=== PATIENT | female | born 1955 | race Caucasian/White ===

== ENCOUNTER → 2016-09-21 | Outpatient (CLI) | payer BC ==
[~2016-09-21] MED LIST: ASPI-232 PO; SYMIN160 INH; TRIA1SPR2 NAE
--- NOTE | 2016-09-21 08:40 | DIAGNOSTIC IMAGING REPORT ---
ABDOMEN COMPLETE (US) CLINICAL HISTORY: K58.9 Irritable bowel [id number] Abdominal bloating COMPARISON STUDY: 11/23/2015 FINDINGS: The pancreas appear normal as visualized. The gallbladder appeared normal. There is no ductal dilatation. The common buttock measures 4 mm. The spleen measures 9.8 cm in length. The right kidney measured 10.8 cm in length. The left kidney measures 10.7 cm in length. No focal renal masses were visualized. There is no hydronephrosis. There is no abdominal aortic dilatation. The IVC was unremarkable in appearance. The liver was of slightly increased echogenicity, nonspecific finding likely secondary to hepatic steatosis. IMPRESSION: Suspected hepatic steatosis. Otherwise unremarkable abdominal ultrasound. Electronically signed by: Antony Rodas M.D. 09/21/2016 8:38 AM Dictated Date/Time: 09/21/2016 8:36 AM
[2016-09-21 09:30] LABS: BASO % 0.2 %; BASO ABS # 0.02 K/uL (0-0.2); COMPLETE YES; EOS % 2.4 %; IG% 0.4 %; LYMPH % 23.1 %; MEAN CELL VOLUME 91.1 fL (80-100); MEAN CORPUSCULAR HEMOGLOBIN 31.3 pg (25-34); MEAN CORPUSCULAR HGB CONC 34.3 g/dl (32-36); MEAN PLATELET VOLUME 10.2 fL (7.4-10.4); MONO % 7.8 %; NEUT % 66.1 %; PLATELET COUNT 269 K/uL (130-400); RED BLOOD COUNT 4.83 M/uL (4.2-5.4); WHITE BLOOD COUNT 10.38 K/uL (4.8-10.8)
[2016-09-21 09:44] LABS: ALT/SGPT 40 U/L (12-78); BLOOD UREA NITROGEN 15 mg/dl (7-18); BUN/CREATININE RATIO 13.3 (10-20); CALCIUM 9.3 mg/dl (8.5-10.1); CARBON DIOXIDE 26 mmol/L (21-32); CHLORIDE 106 mmol/L (98-107); CHOLESTEROL 219 mg/dl (0-200); GLUCOSE 96 mg/dl (70-99); POTASSIUM 4.4 mmol/L (3.5-5.1); SODIUM 141 mmol/L (136-145); TRIGLYCERIDES 199 mg/dl (0-150); VERY LOW DENSITY LIPOPROT CALC 40 mg/dl
[2016-09-21 09:53] LABS: ALB/GLOB RATIO 1.2 (0.9-2); ALKALINE PHOSPHATASE 60 U/L (45-117); AST/SGOT 18 U/L (15-37); CHOLESTEROL/HDL RATIO 6.6; HDL CHOLESTEROL 33 mg/dl; LDL CHOLESTEROL CALCULATED 146 mg/dl
== END | disposition home or self-care (01) ==
LOC: C.ULTR 07:41
PROVIDERS: ATTEND Internal Medicine
DX: R14.0 Abdominal distension (gaseous) (principal); R10.13 Epigastric pain; K58.9 Irritable bowel syndrome, unspecified; Z13.220 Encounter for screening for lipoid disorders

== ENCOUNTER → 2017-01-05 | Outpatient (CLI) | payer BC, OTHER | END | disposition home or self-care (01) | LOC: C.PAPS 11:27 | PROVIDERS: ATTEND Obstetrics & Gynecology | DX: Z01.419 Encounter for gynecological examination (general) (routine) without abnormal findings (principal) ==

== ENCOUNTER → 2017-11-24 | Outpatient (CLI) | payer BC | END | disposition home or self-care (01) | LOC: C.LAB1850 10:29 | PROVIDERS: ATTEND Internal Medicine | DX: R14.0 Abdominal distension (gaseous) (principal) ==

== ENCOUNTER → 2018-01-06 | Outpatient (CLI) | payer BC | END | disposition home or self-care (01) | LOC: C.PAPS 12:09 | PROVIDERS: ATTEND Obstetrics & Gynecology | DX: Z01.419 Encounter for gynecological examination (general) (routine) without abnormal findings (principal); N95.2 Postmenopausal atrophic vaginitis ==